=== PATIENT | male | born 1970 | race Asian ===

== ENCOUNTER 2018-11-10 10:02 | Outpatient (CLI) | payer OTHER ==
[2018-11-10 11:12] LABS: ALT (SGPT) 23 U/L (8-55); AST (SGOT) 23 U/L (5-34); Albumin 4.4 g/dL (3.5-5.0); Alkaline Phosphatase 60 U/L (40-150); Bilirubin, Direct 0.6 mg/dL (0.1-0.3); Bilirubin, Total 1.8 mg/dL (0.2-1.2); Protein, Total 7.1 g/dL (6.0-8.3)
--- NOTE | 2018-11-10 12:05 | ULT ---
RIGHT UPPER QUADRANT ULTRASOUND: Date: 11/10/18 HISTORY: Hepatitis B. FINDINGS: The liver demonstrates homogeneous echotexture without focal mass or intrahepatic ductal dilatation. No gallstones, gallbladder wall thickening, or pericholecystic fluid is seen. The common duct measure s 3.0 mm in diameter. The visualized portions of the pancreas and right kidney are unremarkable. No f ree fluid is seen. IMPRESSION: No evidence of hepatic mass or cholelithiasis. POS: [facility]
== END 2018-11-10 10:03 | disposition home or self-care (01) ==
LOC: SCSULT 10:02
PROVIDERS: ATTEND Family Medicine
DX: B18.1 Chronic viral hepatitis B without delta-agent (principal)
CPT/HCPCS: 36415; 76705; 80076; 87517

== ENCOUNTER 2019-10-29 08:04 | Outpatient (CLI) | payer OTHER ==
--- NOTE | 2019-10-29 09:27 | ULT ---
HEPATIC DUPLEX ULTRASOUND INCLUDING COLOR AND SPECTRAL DOPPLER IMAGING: Date: 10/29/2019 HISTORY: Hepatitis B, elevated LFTs. FINDINGS: Liver echogenicity is within normal limits. There is a 0.7 x 0.8 cm left lobe of liver cyst. Spleen i s within normal limits of size. The gallbladder demonstrates no evidence of gallstones, wall thickeni ng, edema, or pericholecystic fluid. Common bile duct 0.4 cm. Hepatic and portal venous flow is antegrade. IMPRESSION: Small left lobe of liver cyst. Antegrade hepatic and portal venous flow. No other significant process. POS: [facility]
[2019-10-29 10:43] LABS: ALT (SGPT) 20 U/L (8-55); AST (SGOT) 19 U/L (5-34); Albumin 4.5 g/dL (3.5-5.0); Alkaline Phosphatase 64 U/L (40-110); Bilirubin, Direct 0.7 mg/dL (0.1-0.3); Bilirubin, Total 2.3 mg/dL (0.2-1.2); Protein, Total 7.1 g/dL (6.0-8.3)
[2019-10-31 12:10] LABS: HBV as IU/mL HBV DNA not detected IU/mL (.)
== END 2019-10-29 08:05 | disposition home or self-care (01) ==
LOC: SCSULT 08:04
PROVIDERS: ATTEND Internal Medicine
DX: B18.1 Chronic viral hepatitis B without delta-agent (principal); K76.89 Other specified diseases of liver
CPT/HCPCS: 36415; 76705; 80076; 86707; 87350; 87517